=== PATIENT | male | born 1990 | race Caucasian/White ===

== ENCOUNTER 2022-06-09 09:44 | Emergency (ER) | payer BC, OTHER ==
[~2022-06-09] VITALS: Ht 177.8 cm; Wt 107.0 kg
[2022-06-09] MEDS ORDERED: ONDANSETRON 4 MG/2 ML (SDV) Z0FRAN IVP STA (10:24)
[2022-06-09] MEDS ORDERED: cefTRIAXone 1 GM PRE-MIX 50 ML IV STA (10:24)
[2022-06-09] MEDS ORDERED: NS IV 1000 ML 1,000 ML IV STA ×2 (10:24→11:12)
[2022-06-09] MEDS ORDERED: HOLD METFORMIN - RECEIVED CONTRAST 20 ML VIAL IV SCH (10:30)
[2022-06-09] MEDS ORDERED: IOHEXOL 350 MG/ML 100 ML (OMNIPAQUE 350) VIAL IV ONE (10:30)
[2022-06-09] MEDS ORDERED: NS 100 ML (IVPB) BAG IV ONE (10:30)
--- NOTE | 2022-06-09 10:32 | ED General ---
General Stated Complaint: CYST Source of Information: Patient History of Present Illness Date Seen by Provider: Jun 09, 2022 Time Seen by Provider: 09:51 Initial Comments 31-year-old male presenting with complaints of abscess to his right butt cheek. He states that this has been building up over several days last week. 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 While on shift he states that the area came to ahead and started draining blood, clots, purulent drainage. He has been having subjective fever. He states he is taken Tylenol to help with his pain and after taking the Tylenol he usually would sweat for 30 to 45 minutes. Since it was not going away and he still had pain he went to Urgent care and they sent him here. Timing/Duration: 5-6 Days Severity: Severe Modifying Factors: worse with Movement Associated Systoms: No Chest Pain, No Cough; Diaphoresis (After taking Tylenol); No Fever/Chills, No Headaches; Loss of Appetite, Malaise, Nausea/Vomiting; No Seizure, No Shortness of Air, No Syncope, No Weakness Allergies and Home Medications Allergies Coded Allergies: No Known Drug Allergies (Unverified , 06/09/22) Patient Home Medication List Home Medication List Reviewed: Yes Review of Systems Review of Systems Constitutional: see HPI; No chills, No fever EENTM: no symptoms reported Respiratory: no symptoms reported Cardiovascular: palpitations Gastrointestinal: No abdominal pain; nausea, vomiting Genitourinary: No dysuria Musculoskeletal: no symptoms reported Skin: change in color (Redness and swelling to the right buttock with drainage over the last few days) Psychiatric/Neurological: Denies Headache Hematologic/Lymphatic: Denies Blood Clots Past Nfiiaae-Zzhnrj-Zpscty Hx Patient Social History Tobacco Use?: No Past Medical History Surgery/Hospitalization HX: Recurrent abscess and cellulitis in the past Physical Exam Vital Signs Vital Signs - First Documented 06/09/22 06/09/22 10:10 12:10 Temp 37.0 Pulse 129 Resp 16 B/P (MAP) 128/90 (103) Pulse Ox 100 O2 Delivery Room Air Capillary Refill : Height, Weight, BMI Height: '" Weight: lbs. oz. kg; BMI Method: General Appearance: No Apparent Distress, WD/WN HEENT: PERRL/EOMI, Pharynx Normal; No Moist Mucous Membranes (Slightly dry mucous membranes) Neck: Full Range of Motion, Normal Inspection, Non Tender, Supple Respiratory: Chest Non Tender, Lungs Clear, Normal Breath Sounds, No Accessory Muscle Use, No Respiratory Distress Cardiovascular: Normal Peripheral Pulses, Tachycardia Gastrointestinal: Normal Bowel Sounds, No Pulsatile Mass, Non Tender, Soft Rectal: Other (Right buttock is erythematous with induration. There is no fluctuance. He has purulent drainage from the 3 mm opening on his right buttock.) Extremity: Normal Capillary Refill, Normal Inspection, No Pedal Edema Neurologic/Psychiatric: Alert, Oriented x3 Skin: Warm/Dry, Erythema (Right buttock) Focused Exam Lactate Level 06/09/22 10:28: Lactic Acid Level 1.39 Lactic Acid Level Laboratory Tests Test 06/09/22 10:28 Lactic Acid Level 1.39 MMOL/L (0.50-2.00) Progress/Results/Core Measures Suspected Sepsis SIRS Temperature: Pulse: Respiratory Rate: Laboratory Tests 06/09/22 10:28: White Blood Count 25.4H Blood Pressure / Mean: 06/09/22 10:28: Lactic Acid Level 1.39 Laboratory Tests 06/09/22 10:28: Creatinine 0.95, Platelet Count 287, Total Bilirubin 1.0 Results/Orders Lab Results Laboratory Tests Test 06/09/22 10:28 Range/Units White Blood Count 25.4 H 4.3-11.0 10^3/uL Red Blood Count 4.74 4.30-5.52 10^6/uL Hemoglobin 13.3 13.3-17.7 g/dL Hematocrit 39 L 40-54 % Mean Corpuscular Volume 82 80-99 fL Mean Corpuscular Hemoglobin 28 25-34 pg Mean Corpuscular Hemoglobin Concent 34 32-36 g/dL Red Cell Distribution Width 14.0 10.0-14.5 % Platelet Count 287 130-400 10^3/uL Mean Platelet Volume 8.7 L 9.0-12.2 fL Immature Granulocyte % (Auto) 0 % Neutrophils (%) (Auto) 41 L 42-75 % Lymphocytes (%) (Auto) 46 H 12-44 % Monocytes (%) (Auto) 12 0-12 % Eosinophils (%) (Auto) 0 0-10 % Basophils (%) (Auto) 0 0-10 % Neutrophils # (Auto) 10.4 H 1.8-7.8 10^3/uL Lymphocytes # (Auto) 11.7 H 1.0-4.0 10^3/uL Monocytes # (Auto) 3.1 H 0.0-1.0 10^3/uL Eosinophils # (Auto) 0.0 0.0-0.3 10^3/uL Basophils # (Auto) 0.1 0.0-0.1 10^3/uL Immature Granulocyte # (Auto) 0.1 0.0-0.1 10^3/uL Neutrophils % (Manual) 48 % Lymphocytes % (Manual) 34 % Monocytes % (Manual) 17 % Basophils % (Manual) 1 % Sodium Level 131 L 135-145 MMOL/L Potassium Level 3.9 3.6-5.0 MMOL/L Chloride Level 93 L 98-107 MMOL/L Carbon Dioxide Level 20 L 21-32 MMOL/L Anion Gap 18 H 5-14 MMOL/L Blood Urea Nitrogen 13 7-18 MG/DL Creatinine 0.95 0.60-1.30 MG/DL BUN/Creatinine Ratio Glucose Level 97 70-105 MG/DL Lactic Acid Level 1.39 0.50-2.00 MMOL/L Calcium Level 9.2 8.5-10.1 MG/DL Corrected Calcium 8.5-10.1 MG/DL Total Bilirubin 1.0 0.1-1.0 MG/DL Aspartate Amino Transf (AST/SGOT) 79 H 5-34 U/L Alanine Aminotransferase (ALT/SGPT) 146 H 0-55 U/L Alkaline Phosphatase 118 40-136 U/L C-Reactive Protein 13.82 H <0.50 MG/DL Total Protein 8.9 H 6.4-8.2 GM/DL Albumin 4.6 H 3.2-4.5 GM/DL My Orders Orders - LEO RUFF MD Cbc With Automated Diff (06/09/22 10:24) Comprehensive Metabolic Panel (06/09/22 10:24) Blood Culture (06/09/22 10:24) Ua Culture If Indicated (06/09/22 10:24) Ed Iv/Invasive Line Start (06/09/22 10:24) Crp Fs (06/09/22 10:24) Lactic Acid Analyzer (06/09/22 10:24) Ct Pelvis W (06/09/22 10:24) Wound Culture (06/09/22 10:24) Ns Iv 1000 Ml (Sodium Chloride 0.9%) (06/09/22 10:24) Ondansetron Injection (Zofran Injectio (06/09/22 10:24) Ceftriaxone 1 Gm Pre-Mix (Rocephin 1 Gm (06/09/22 10:24) Iohexol Injection (Omnipaque 350 Mg/Ml 1 (06/09/22 10:30) Received Contrast (Hold Metformin- Contr (06/09/22 10:30) Ns (Ivpb) (Sodium Chloride 0.9% Ivpb Bag (06/09/22 10:30) Manual Differential (06/09/22 10:28) Ns Iv 1000 Ml (Sodium Chloride 0.9%) (06/09/22 11:12) Medications Given in ED Current Medications Medications Dose Ordered Sig/Arslan Route Start Time Stop Time Status Last Admin Dose Admin Iohexol 100 ml ONCE ONCE IV 06/09/22 10:30 06/09/22 10:31 DC 06/09/22 11:00 100 ML Sodium Chloride 100 ml ONCE ONCE IV 06/09/22 10:30 06/09/22 10:31 DC 06/09/22 11:00 100 ML Vital Signs/I&O 06/09/22 06/09/22 10:10 12:10 Temp 37.0 37.0 Pulse 129 101 Resp 16 16 B/P (MAP) 128/90 (103) 124/76 Pulse Ox 100 O2 Delivery Room Air Room Air Capillary Refill : Progress Note #1: Progress Note Has patient is tachycardic on arrival and has a source of infection will obtain labs to look for signs of sepsis. Administer Rocephin 1 g IV for antibiotic after obtaining blood cultures. CT scan of the pelvis to evaluate the area involving his right buttock to see if there is a drainable fluid collection or if that is all inflammation and infection. Progress Note #2: Progress Note Labs do show an elevated white blood cell count of 25.4 thousand with a left shift. His chemistry panel showed normal lactic acid of 1.39. He was not showing evidence of renal or hepatic failure. CT scan did not show any acute fluid collection that was drainable in the region of the right abscess and cellulitis. He did have some inflammation to his colon and rectum and the str anding and inflammation extends from the perirectal area into the right buttock. Progress Note #3: Progress Note Discussed with Dr. Umanzor from [facility]. He was willing to accept the patient for admission as the patient requested to go there for treatment. Anticipate continuing IV antibiotics and fluids to support his treatment of sepsis. Diagnostic Imaging Diagonstic Imaging: CT Plain Films/CT/US/NM/MRI: pelvis Comments [facility], [place] NAME: MARION CHUN [facility] REC#: [id number] PT STATUS: DEP ER : 1990 PHYSICIAN: LEO RUFF MD ADMIT DATE: 06/09/22/ER FS Signed Date of Exam:06/09/22 CT PELVIS W PROCEDURE: CT pelvis with contrast. TECHNIQUE: Oral and intravenous contrast were administered with pelvic CT performed. Auto Exposure Controls were utilized during the CT exam to meet ALARA standards for radiation dose reduction. INDICATION: Right gluteal abscess, pain COMPARISON: None available FINDINGS: The urinary bladder is unremarkable. The appendix is mildly dilated measuring up to 1 cm, though there is no associated adjacent fat stranding. No evidence of bowel obstruction within the [id number]. Focal mural thickening of the distal sigmoid colon and rectum is noted with associated adjacent fat stranding, right greater than left. This fat stranding extends into the medial aspect of the right gluteal region. No significant focal drainable fluid collection. Lymph nodes along the right external iliac chain are mildly enlarged. No significant free air or free fluid. No acute osseous abnormality. IMPRESSION: Findings concerning for proctitis and distal colitis. This is associated with inflammatory stranding extending from the rectum through the right perirectal soft tissues and into the right gluteal region suggesting underlying inflammation and cellulitis. No discrete drainable focal fluid collection. Mild dilatation of the appendix. It is favored this is simply physiologic for the patient as there is no adjacent inflammatory stranding. Acute appendicitis cannot be completely excluded though felt unlikely. Dictated by: Dictated on workstation # [id number] Dict: 06/09/22 1122 Trans: 06/09/22 1253 [facility] [id number] Interpreted by: ESTELLA SAUCEDO MD Electronically signed by: ESTELLA SAUCEDO MD 06/09/22 1253 Reviewed: Reviewed by Me Departure Impression Primary Impression: Sepsis Qualified Codes: A41.9 - Sepsis, unspecified organism Additional Impression: Cellulitis and abscess of buttock Disposition: [facility] Condition: Stable Transfer Transfer Reason: Patient preference Time Spoke to Accepting Phy: 11:23 Transfer Progress Notes Discussed with Dr. Umanzor and he accepted the patient for admission at [facility]. Transfer Facility: [facility] Method of Transfer: EMS Departure-Patient Inst. Referrals: NO,LOCAL PHYSICIAN (PCP/Family) Primary Care Physician LEO RUFF MD Jun 09, 2022 10:32
[2022-06-09 10:34] LABS: BASOPHILS # (AUTO) 0.1 10^3/uL (0.0-0.1); BASOPHILS % (AUTO) 0 % (0-10); EOSINOPHILS % (AUTO) 0 % (0-10); HEMATOCRIT 39 % (40-54); HEMOGLOBIN 13.3 g/dL (13.3-17.7); LYMPHOCYTES # (AUTO) 11.7 10^3/uL (1.0-4.0); LYMPHOCYTES % (AUTO) 46 % (12-44); MEAN CORPUSCULAR HEMOGLOBIN 28 pg (25-34); MEAN CORPUSCULAR HGB CONC 34 g/dL (32-36); MEAN CORPUSCULAR VOLUME 82 fL (80-99); MEAN PLATELET VOLUME 8.7 fL (9.0-12.2); MONOCYTES # (AUTO) 3.1 10^3/uL (0.0-1.0); MONOCYTES % (AUTO) 12 % (0-12); NEUTROPHILS # (AUTO) 10.4 10^3/uL (1.8-7.8); NEUTROPHILS % (AUTO) 41 % (42-75); PLATELET COUNT 287 10^3/uL (130-400); WHITE BLOOD COUNT 25.4 10^3/uL (4.3-11.0)
[2022-06-09 10:57] LABS: CARBON DIOXIDE 20 MMOL/L (21-32); CHLORIDE 93 MMOL/L (98-107); CREATININE SERUM 0.95 MG/DL (0.60-1.30); POTASSIUM 3.9 MMOL/L (3.6-5.0); SODIUM 131 MMOL/L (135-145)
[2022-06-09 10:58] LABS: ALANINE AMINOTRANSFERASE 146 U/L (0-55); ALBUMIN 4.6 GM/DL (3.2-4.5); ALKALINE PHOSPHATASE 118 U/L (40-136); CALCIUM 9.2 MG/DL (8.5-10.1); GLUCOSE 97 MG/DL (70-105); TOTAL PROTEIN 8.9 GM/DL (6.4-8.2)
[2022-06-09 11:01] LABS: NEUTROPHILS % (MANUAL) 48 %
[2022-06-09 11:02] LABS: BASOPHILS % (MANUAL) 1 %; LYMPHOCYTES % (MANUAL) 34 %; MONOCYTES % (MANUAL) 17 %
--- NOTE | 2022-06-09 11:36 | Diagnostic Imaging Report ---
PROCEDURE: CT pelvis with contrast. TECHNIQUE: Oral and intravenous contrast were administered with pelvic CT performed. Auto Exposure Controls were utilized during the CT exam to meet ALARA standards for radiation dose reduction. INDICATION: Right gluteal abscess, pain COMPARISON: None available FINDINGS: The urinary bladder is unremarkable. The appendix is mildly dilated measuring up to 1 cm, though there is no associated adjacent fat stranding. No evidence of bowel obstruction within the [id number]. Focal mural thickening of the distal sigmoid colon and rectum is noted with associated adjacent fat stranding, right greater than left. This fat stranding extends into the medial aspect of the right gluteal region. No significant focal drainable fluid collection. Lymph nodes along the right external iliac chain are mildly enlarged. No significant free air or free fluid. No acute osseous abnormality. IMPRESSION: Findings concerning for proctitis and distal colitis. This is associated with inflammatory stranding extending from the rectum through the right perirectal soft tissues and into the right gluteal region suggesting underlying inflammation and cellulitis. No discrete drainable focal fluid collection. Mild dilatation of the appendix. It is favored this is simply physiologic for the patient as there is no adjacent inflammatory stranding. Acute appendicitis cannot be completely excluded though felt unlikely. Dictated by: Dictated on workstation # [id number]
[2022-06-09 12:10] VITALS: BP 124/76
== END 2022-06-09 12:10 | disposition short-term general hospital (02) ==
LOC: ER FS 09:46
DX: A41.9 Sepsis, unspecified organism (principal); L03.317 Cellulitis of buttock; L02.31 Cutaneous abscess of buttock
CPT/HCPCS: 72193; 80053; 83605; 85007; 86141; 87040; 87070; 87077; 87205; Q9967

== ENCOUNTER → 2022-06-18 | Outpatient (CLI) | payer BC ==
[2022-06-18 23:21] LABS: HEPATITIS C ANTIBODY C Non-Reactive (Non-Reactive)
== END ==
LOC: LAB FS 11:50
PROVIDERS: ATTEND Pediatrics
DX: R74.01 Elevation of levels of liver transaminase levels (principal)
CPT/HCPCS: 36415; 80074